=== PATIENT | male | born 1970 | race African-American/Black ===

== ENCOUNTER → 2017-01-21 | Outpatient (CLI) | payer OTHER ==
[2016-07-03 10:49] VITALS: BP 169/95
[2017-01-21 10:16] LABS: ALANINE AMINOTRANSFERASE 10 Units/L (12-78); ALBUMIN 3.8 g/dL (3.4-5.0); ALKALINE PHOSPHATASE 81 Units/L (46-116); ASPARTATE AMINO TRANSFERASE 8 Units/L (15-37); BLOOD UREA NITROGEN 12 mg/dL (7-18); CALCIUM 8.9 mg/dL (8.5-10.1); CARBON DIOXIDE 26.8 mmol/L (21-32); CHLORIDE 107 mmol/L (98-107); COR NA(FOR HYPERGLY) 142 mmol/L (136-145); CREATININE 1.03 mg/dL (0.70-1.30); GLUCOSE 125 mg/dL (65-99); SODIUM 141 mmol/L (136-145); T4 (THYROXINE) 9.2 ug/dL (4.7-13.3); TOTAL PROTEIN 7.5 g/dL (6.4-8.2); TSH (3RD GENERATION) 1.431 uIU/mL (0.358-3.74); eGFR BLACK RACES > 60 (>60); eGFR NON BLACK RACES > 60 (>60)
[2017-01-21 10:17] LABS: BASOPHILS % (AUTO) 0.7 % (0.2-1.0); EOSINOPHILS # (AUTO) 0.3 x10^3/uL (0.0-0.2); EOSINOPHILS % (AUTO) 4.4 % (0.9-2.9); HEMATOCRIT 45.3 % (42.0-54.0); HEMOGLOBIN 15.8 g/dL (13.5-18.0); LYMPHOCYTES # (AUTO) 2.2 X10^3/uL (1.3-2.9); LYMPHOCYTES % (AUTO) 34.8 % (21.0-51.0); MEAN CORPUSCULAR HEMOGLOBIN 28.1 pg (27.0-34.0); MEAN CORPUSCULAR VOLUME 80.4 fL (80.0-100.0); MEAN PLATELET VOLUME 9.4 fL (7.4-11.0); MONOCYTES # (AUTO) 0.5 x10^3/uL (0.3-0.8); MONOCYTES % (AUTO) 7.6 % (0.0-13.0); NEUTROPHILS # (AUTO) 3.3 x10^3/uL (2.2-4.8); NEUTROPHILS % (AUTO) 52.5 % (42.0-75.0); PLATELET COUNT 152 X10^3/uL (150.0-450.0); RED BLOOD COUNT 5.63 X10^6/uL (4.7-6.0); RED CELL DISTRIBUTION WIDTH 14.4 % (11.6-16.5); WHITE BLOOD COUNT 6.3 X10^3/uL (3.6-10.0)
== END ==
LOC: LAB 09:12
PROVIDERS: ATTEND Internal Medicine
DX: E11.9 Type 2 diabetes mellitus without complications (principal); I10 Essential (primary) hypertension
CPT/HCPCS: 36415; 80053; 84436; 84443; 85025

== ENCOUNTER 2017-05-04 12:29 | Emergency (ER) | payer OTHER ==
[2017-05-04] MEDS ORDERED: NS 1000 ML 1,000 ML ONE (12:43)
[2017-05-04 12:44] VITALS: BP 159/83; BMI 26.6
[2017-05-04] MEDS ORDERED: ZOFRAN INJ 4 MG VIAL IVP ONE ×2 (12:44→14:03)
[2017-05-04] MEDS ORDERED: ZOFRAN INJ 4 MG VIAL ONE ×2 (12:44→14:17)
--- NOTE | 2017-05-04 12:48 | DR.N/VMALE ---
HPI - Time Seen Time seen: 12:40 - Primary Care Physician Primary Care Physician: DONNA SANTOYO - Complaints Chief Complaint Doctors Comments: Complaint of abdominal pain and vomiting onset today. Chief Complaint:: EMS TONES OUT TO PT WITH N/V, ABD PAIN AND SOB .. PT DENIES ANY CHEST PAIN.. - Reviewed Nurses Notes Reviewed: Yes - Source History Provided: Patient, EMS - Mode of Arrival Mode of Arrival: EMS - Timing Onset of Chief Complaint: 05/04/17 - Context Onset: Spontaneous Recent: denies: Travel, Contact Exposure, None Possible Ingestion: denies: Unknown, ETOH, Ethylene Glycol, Isopropanol, Methanol History of: Diabetes - Quality Quality: Food Particles - Associated Signs and Symptoms Abdominal Pain Quality: Cramping Abdominal Pain Location: Epigastric Symptoms: Abdominal Pain. denies: Diarrhea PMH - PMH Past Medical History: Yes Past Medical History: Diabetes, GERD, Hypertension, VA Past Surgical History: Yes Surgical History: Angioplasty/Stents - Family History History of Family Medical Conditions: Yes Family Medical History: Diabetes Mellitus, Cancer, [place], Heart Failure, Hypertension - Social History Does patient currently use any type of tobacco product: Yes Have you used tobacco products in the last 12 months: Yes Type of Tobacco Use: Cigars Does any household member use tobacco: No Alcohol Use: None Do you use any recreational Drugs:: No Lives With: Family Lives Where: Home - infectious screening In the last 2 months have you had wt loss of >10#?: NO Have you had fever, night sweats or hemotysis?: No Have you traveled outside the country in the last 6 months?: No Isolation: Standard ROS - Review of Systems Constitutional: No Symptoms Reported Eyes: No Symptoms Reported ENTM: No Symptoms Reported Respiratoy: No Symptoms Reported Cardiovascular: No Symptoms Reported Gastrointestinal/Abdominal: Vomiting Genitourinary: No Symptoms Reported Neurological: No Symptoms Reported Musculoskeletal: No Symptoms Reported Integumentary: No Symptoms Reported Hematologic/Lymphatic: No Symptoms Reported Psychiatric: No Symptoms Reported PE - Vital Signs Vitals: Temperature 98.6 F Pulse Rate 62 Respiratory Rate 18 Blood Pressure [Right Arm] 132/82 Blood Pressure 159/83 O2 Sat by Pulse Oximetry 100 - General Limitations: No Limitations General Appearance: Alert, In No Apparent Distress - Head Head Exam: Normal Inspection - Eyes Eye exam: Normal Appearance, EOMI. negative: Scleral Icterus, Conjunctival Injection - ENT ENT Exam: Normal Exam, Normal Oropharynx - Neck Neck Exam: Normal Inspection, Full ROM, Trachea Midline - Chest Chest Inspection: Normal Inspection - Respiratory Respiratory Exam: Normal Lung Sounds Bilat. negative: Accessory Muscle Use, Respiratory Distress - Cardiovascular Cardiovascular Exam: Regular Rate - Abdominal Exam Abdominal Exam: Normal Inspection, Normal Bowel Sounds, Soft. negative: Distention, Tenderness, Guarding Abdominal Tenderness: Epigastrium - Extremities Extremities Exam: Normal Inspection, Full ROM - Neurologic Neurological Exam: Alert, Oriented X3, CN II-XII Intact - Psychiatric Psychiatric Exam: Normal Affect, Flat Affect - Skin Skin Exam: Intact, Normal Color ROR - Labs Reviewed Result Diagrams: 05/04/17 13:17 05/04/17 13:17 Laboratory: WBC 9.4 X10^3/uL (3.6-10.0) 05/04/17 13:17 RBC 5.73 X10^6/uL (4.7-6.0) 05/04/17 13:17 Hgb 16.3 g/dL (13.5-18.0) 05/04/17 13:17 Hct 46.3 % (42.0-54.0) 05/04/17 13:17 MCV 80.7 fL (80.0-100.0) 05/04/17 13:17 MCH 28.5 pg (27.0-34.0) 05/04/17 13:17 MCHC 35.3 g/dL (33.0-35.0) H 05/04/17 13:17 RDW 14.7 % (11.6-16.5) 05/04/17 13:17 Plt Count 141 X10^3/uL (150.0-450.0) L 05/04/17 13:17 MPV 9.2 fL (7.4-11.0) 05/04/17 13:17 Neut % 84.8 % (42.0-75.0) H 05/04/17 13:17 Lymph % 11.1 % (21.0-51.0) L 05/04/17 13:17 [place] % 3.0 % (0.0-13.0) 05/04/17 13:17 Eos % 0.4 % (0.9-2.9) L 05/04/17 13:17 Baso % 0.7 % (0.2-1.0) 05/04/17 13:17 Neut # 8.0 x10^3/uL (2.2-4.8) H 05/04/17 13:17 Lymph # 1.0 X10^3/uL (1.3-2.9) L 05/04/17 13:17 [place] # 0.3 x10^3/uL (0.3-0.8) 05/04/17 13:17 Eos # 0.0 x10^3/uL (0.0-0.2) 05/04/17 13:17 Baso # 0.1 X10^3/uL (0.0-0.1) 05/04/17 13:17 Absolute Nucleated RBC 0.1 /100WBC 05/04/17 13:17 Sodium 139 mmol/L (136-145) 05/04/17 13:17 Corrected Sodium 142 mmol/L (136-145) 05/04/17 13:17 Potassium 4.2 mmol/L (3.5-5.1) 05/04/17 13:17 Chloride 103 mmol/L (98-107) 05/04/17 13:17 Carbon Dioxide 28.4 mmol/L (21-32) 05/04/17 13:17 BUN 9 mg/dL (7-18) 05/04/17 13:17 Creatinine 0.94 mg/dL (0.70-1.30) 05/04/17 13:17 Est GFR (MDRD) Af Amer > 60 (>60) 05/04/17 13:17 Est GFR (MDRD) Non-Af > 60 (>60) 05/04/17 13:17 Glucose 232 mg/dL (65-99) H 05/04/17 13:17 Calcium 8.7 mg/dL (8.5-10.1) 05/04/17 13:17 Corrected Calcium TNP 05/04/17 13:17 Total Bilirubin 0.40 mg/dL (0.2-1.0) 05/04/17 13:17 AST 8 Units/L (15-37) L 05/04/17 13:17 ALT 14 Units/L (12-78) 05/04/17 13:17 Alkaline Phosphatase 84 Units/L (46-116) 07/18/17 13:17 Total Protein 7.9 g/dL (6.4-8.2) 05/04/17 13:17 Albumin 3.9 g/dL (3.4-5.0) 05/04/17 13:17 Globulin 4.0 g/dL (2.5-4.5) 05/04/17 13:17 Albumin/Globulin Ratio 1.0 Ratio (1.1-2.1) L 05/04/17 13:17 Lipase 110 Units/L (73-393) 05/04/17 13:17 - XRAY XRAY Interpreted by: Radiologist XRAY Findings: AAS: no acute disease - Diagnosis Discharge Problem: Vomiting Qualifiers: Vomiting type: unspecified Vomiting Intractability: non-intractable Nausea presence: with nausea Qualified Code(s): R11.2 - Nausea with vomiting, unspecified - Discharge Plan Condition: Stable - Follow ups/Referrals Follow ups/Referrals: [facility],None [Primary Care Provider] - 3 days - Instructions
[2017-05-04 13:32] LABS: BASOPHILS # (AUTO) 0.1 X10^3/uL (0.0-0.1); BASOPHILS % (AUTO) 0.7 % (0.2-1.0); EOSINOPHILS % (AUTO) 0.4 % (0.9-2.9); HEMATOCRIT 46.3 % (42.0-54.0); HEMOGLOBIN 16.3 g/dL (13.5-18.0); LYMPHOCYTES % (AUTO) 11.1 % (21.0-51.0); MEAN CORPUSCULAR HEMOGLOBIN 28.5 pg (27.0-34.0); MEAN CORPUSCULAR HGB CONC 35.3 g/dL (33.0-35.0); MEAN CORPUSCULAR VOLUME 80.7 fL (80.0-100.0); MEAN PLATELET VOLUME 9.2 fL (7.4-11.0); MONOCYTES # (AUTO) 0.3 x10^3/uL (0.3-0.8); NEUTROPHILS % (AUTO) 84.8 % (42.0-75.0); PLATELET COUNT 141 X10^3/uL (150.0-450.0); RED BLOOD COUNT 5.73 X10^6/uL (4.7-6.0); RED CELL DISTRIBUTION WIDTH 14.7 % (11.6-16.5); WHITE BLOOD COUNT 9.4 X10^3/uL (3.6-10.0)
[2017-05-04 13:41] LABS: ALANINE AMINOTRANSFERASE 14 Units/L (12-78); ALBUMIN 3.9 g/dL (3.4-5.0); ALKALINE PHOSPHATASE 84 Units/L (46-116); ASPARTATE AMINO TRANSFERASE 8 Units/L (15-37); BLOOD UREA NITROGEN 9 mg/dL (7-18); CALCIUM 8.7 mg/dL (8.5-10.1); CARBON DIOXIDE 28.4 mmol/L (21-32); CHLORIDE 103 mmol/L (98-107); COR NA(FOR HYPERGLY) 142 mmol/L (136-145); CREATININE 0.94 mg/dL (0.70-1.30); GLUCOSE 232 mg/dL (65-99); LIPASE 110 Units/L (73-393); SODIUM 139 mmol/L (136-145); TOTAL PROTEIN 7.9 g/dL (6.4-8.2); eGFR BLACK RACES > 60 (>60); eGFR NON BLACK RACES > 60 (>60)
--- NOTE | 2017-05-04 13:58 | RAD ---
HISTORY: Abdominal pain Study: Acute abdominal series Comparison: February 18, 2015 Findings: The trachea is midline. The cardiac silhouette is unremarkable. The lungs are clear without focal infiltrate or effusion. The bony thorax is unremarkable. The patient is status post median sternot pablo. Flat plate and upright evaluation of the abdomen demonstrates a nonspecific, nonobstructive bowel ga s pattern. No pneumoperitoneum is identified.. No pathological soft tissue mass or calcification ca n be observed. The bony structures are grossly intact. IMPRESSION: 1. No acute cardiopulmonary disease. 2. No evidence for acute abdominal pathology identified. Reported By:
== END 2017-05-04 14:19 | disposition home or self-care (01) ==
LOC: ER 12:29
DX: R11.2 Nausea with vomiting, unspecified (principal)
CPT/HCPCS: 36415; 74022; 80053; 83690; 85025; 96365; 96374; 99283; A4216; A4222; J2405

== ENCOUNTER → 2017-06-17 | Outpatient (CLI) | payer OTHER ==
[2017-06-17 08:45] LABS: BASOPHILS # (AUTO) 0.1 X10^3/uL (0.0-0.1); BASOPHILS % (AUTO) 0.8 % (0.2-1.0); EOSINOPHILS # (AUTO) 0.2 x10^3/uL (0.0-0.2); EOSINOPHILS % (AUTO) 2.4 % (0.9-2.9); HEMOGLOBIN 15.6 g/dL (13.5-18.0); LYMPHOCYTES # (AUTO) 2.5 X10^3/uL (1.3-2.9); LYMPHOCYTES % (AUTO) 30.4 % (21.0-51.0); MEAN CORPUSCULAR HEMOGLOBIN 28.8 pg (27.0-34.0); MEAN CORPUSCULAR HGB CONC 35.5 g/dL (33.0-35.0); MEAN CORPUSCULAR VOLUME 81.1 fL (80.0-100.0); MEAN PLATELET VOLUME 9.1 fL (7.4-11.0); MONOCYTES # (AUTO) 0.6 x10^3/uL (0.3-0.8); MONOCYTES % (AUTO) 6.7 % (0.0-13.0); NEUTROPHILS # (AUTO) 4.9 x10^3/uL (2.2-4.8); NEUTROPHILS % (AUTO) 59.7 % (42.0-75.0); PLATELET COUNT 133 X10^3/uL (150.0-450.0); RED BLOOD COUNT 5.42 X10^6/uL (4.7-6.0); RED CELL DISTRIBUTION WIDTH 14.6 % (11.6-16.5); WHITE BLOOD COUNT 8.2 X10^3/uL (3.6-10.0)
[2017-06-17 08:55] LABS: ALANINE AMINOTRANSFERASE 13 Units/L (12-78); ALBUMIN 3.7 g/dL (3.4-5.0); ALKALINE PHOSPHATASE 76 Units/L (46-116); ASPARTATE AMINO TRANSFERASE 10 Units/L (15-37); BLOOD UREA NITROGEN 9 mg/dL (7-18); CALCIUM 9.2 mg/dL (8.5-10.1); CARBON DIOXIDE 28.5 mmol/L (21-32); CHLORIDE 108 mmol/L (98-107); CHOL/HDL RATIO 3.6 (0.0-5.0); CHOLESTEROL 107 mg/dL (0-200); COR NA(FOR HYPERGLY) 143 mmol/L (136-145); CREATININE 1.01 mg/dL (0.70-1.30); HDL CHOLESTEROL 30 mg/dL (40-60); SODIUM 142 mmol/L (136-145); TOTAL PROTEIN 7.3 g/dL (6.4-8.2); TRIGLYCERIDES 61 mg/dL (0-150); TSH (3RD GENERATION) 1.142 uIU/mL (0.358-3.74); eGFR BLACK RACES > 60 (>60); eGFR NON BLACK RACES > 60 (>60)
== END ==
LOC: LAB 08:06
PROVIDERS: ATTEND Internal Medicine
DX: E11.65 Type 2 diabetes mellitus with hyperglycemia (principal); I25.10 Atherosclerotic heart disease of native coronary artery without angina pectoris; Z79.899 Other long term (current) drug therapy
CPT/HCPCS: 36415; 80053; 80061; 84436; 84443; 85025